=== PATIENT | female | born 1980 | race Caucasian/White ===

== ENCOUNTER 2020-03-11 17:39 | Emergency (ER) | payer BC ==
[~2020-03-11] VITALS: Ht 165.1 cm; Wt 72.6 kg
--- NOTE | 2020-03-11 17:45 | NUR ---
BIB SELF C/O R SIDED FACIAL NUMBNESS X 2 DAYS. PATIENT A/OX4, BREATHING EVEN AND UNLABORED, NO SOB NOTED, NEEDS ATTENDED.
--- NOTE | 2020-03-11 17:50 | NUR ---
CALLED THE PATIENT'S OB DR. ZIA PELLETIER FOR DR. MCCRAY AND JAILYN CHILDERS.
[2020-03-11] MEDS ORDERED: predniSONE 20 MG TABLET ONE (18:06)
--- NOTE | 2020-03-11 18:27 | NUR ---
Patient discharged to home in stable condition. Written and verbal after care instructions given. Patient verbalizes understanding of instruction.
[2020-03-11 18:28] VITALS: BP 134/81
[2020-03-11] MEDS ORDERED: predniSONE 20 MG TABLET PO ONE (18:30)
== END 2020-03-11 18:32 | disposition home or self-care (01) ==
LOC: ER 17:50
DX: O26.892 Other specified pregnancy related conditions, second trimester (principal); G51.0 Bell's palsy; Z3A.22 22 weeks gestation of pregnancy
CPT/HCPCS: 76815; 99284; J7512